=== PATIENT | male | born 1980 | race African-American/Black ===

== ENCOUNTER 2020-08-08 08:38 | Emergency (ER) | payer OTHER, SELFPAY ==
[2020-08-08 09:06] VITALS: PULSE 116; RESP 17; TEMP 37.3; O2SAT 98; BMI 27.4
--- NOTE | 2020-08-08 09:08 | ED.WEAKNESS ---
HPI - Weakness General Chief complaint: Weakness Stated complaint: dehydration,fatigue Time Seen by Provider: 08/08/20 09:04 Source: patient Mode of arrival: ambulatory Limitations: no limitations History of Present Illness HPI Narrative: THIS IS A 39 YEARS OLD MALE PRESENTED AMBULATORY TO THE EMERGENCY DEPARTMENT WITH A CHIEF COMPLAINT OF WEAKNESS, FATIGUE, POOR P.O. INTAKE. HE DENIES ANY FEVER DENIES ANY CHILLS DENIES ANY VOMITING OR DIARRHEA. HE HAS NO PAST MEDICAL HISTORY HE IS A HEAVY DRINKER HOWEVER MD Complaint: generalized weakness Onset (ago): day(s) Duration: constant Location: generalized Severity: mild Relieving factors: none Exacerbating factors: none Associated symptoms: denies other symptoms Related Data Home Medications Medication Instructions Recorded Confirmed No Known Home Meds 08/08/20 08/08/20 Allergies Allergy/AdvReac Type Severity Reaction Status Date / Time No Known Allergies Allergy Unverified 04/21/20 19:34 [No Known Allergies*] Review of Systems Review of Systems: Yes all other systems are reviewed and are negative Cardiovascular: Cardiovascular: Reports no additional cardiovascular complaints Gastrointestinal: Gastrointestinal: Reports no additional gastrointestinal complaints Musculoskeletal: Musculoskeletal: Reports no additional musculoskeletal complaints [facility] Past Medical History Medical History (Updated 08/08/20 @ 11:57 by Man Barlow MD) No known health problems Social History Social History Alcohol intake: current Alcohol intake frequency: a few times a week Smoking Status: Heavy tobacco smoker Substance Use Type: Amphetamines Advance Directives: No Advance Directives Information Provided: No Physical Exam Vital Signs: Vital Signs: Last Vital Signs Temp 99.2 F 08/08/20 09:06 Pulse 75 08/08/20 11:32 Resp 16 08/08/20 11:32 BP 120/79 08/08/20 11:32 Pulse Ox 100 08/08/20 11:32 Body Mass Index 27.4 Const: Other: HE IS AWAKE ALERT ORIENTED X3 LOOKS WELL IS NO TOXIC-APPEARING A HENMT: Other: HEAD EYES NOSE MOUTH THROAT IS UNREMARKABLE Neck: Other: NECK IS SUPPLE NO TENDERNESS NO MENINGEAL SIGN Chest: Chest palpation & inspection: normal inspection of the chest Resp: Other: LUNGS ARE CLEAR DURING AUSCULTATION AND THERE IS NO WHEEZING NO RALES Cardio: Other: REGULAR RATE RHYTHM A GI: Other: ABDOMEN IS SOFT NO TENDERNESS NO GUARDING AND NO REBOUND Skin: Other: SKIN IS NORMAL THERE IS NO RASH Neuro: Other: HE IS AWAKE ALERT ORIENTED X3 NO NEURO DEFICIT Course Reevaluation(s) Reevaluation #1: Reexamination of the patient the patient is feeling much better labs are normal and chest x-ray is negative his COVID test is still pending Time: 11:54 MDM - Weakness Lab Data Result diagrams: 08/08/20 09:40 08/08/20 09:40 Labs: Lab Results 08/08/20 08/08/20 08/08/20 Range/Units 09:40 09:40 09:40 WBC 5.1 (4.8-10.8) X10*3/uL RBC 5.12 (4.60-5.80) X10*6/uL Hgb 15.5 (14.0-18.0) g/dl Hct 47.2 (42-52) % MCV 92.2 (80-98) fL MCH 30.3 (27.0-33.0) pg MCHC 32.8 (31.0-36.0) g/dl RDW 12.0 (11.0-16.0) % Plt Count 249 (160-400) X10*3/uL MPV 10.3 (9.4-12.4) fL Immature Gran % (Auto) 0.4 (0.0-0.4) % Neut % (Auto) 69.0 (45-73) % Lymph % (Auto) 21.7 (20-40) % [place] % (Auto) 8.3 (2-11) % Eos % (Auto) 0.4 (0-4) % Baso % (Auto) 0.2 (0-2) % Lymph # (Auto) 1.1 L (1.2-4.9) X10*3/uL [place] # (Auto) 0.4 (0.1-1.2) X10*3/uL Eos # (Auto) 0.0 (0.0-0.4) X10*3/uL Baso # (Auto) 0.0 (0.0-0.2) X10*3/uL Abs Immat Gran (auto) 0.02 (0.00-0.03) X10*3/uL Absolute Neuts (auto) 3.5 (2.0-8.3) X10*3/uL Absolute Nucleated RBC 0.000 (0.0-0.012) X10*3/uL Nucleated RBC % (auto) 0.0 (0.0-0.2) /100WBC Sodium 141 (135-145) mmol/L Potassium 4.9 (3.3-5.1) mmol/l Chloride 103 (96-108) mmol/L Carbon Dioxide 27 (22-29) mmol/L Anion Gap 16 (12-20) BUN 13 (9-16) mg/dL Creatinine 1.47 H (0.5-1.4) mg/dL Estim Creat Clear Calc 65.3 Estimated GFR 53 Random Glucose 118 H (60-115) mg/dL Calcium 10.7 H (8.4-10.2) mg/dL Magnesium 2.4 (1.6-2.6) mg/dL Total Bilirubin 0.3 (0.0-1.0) mg/dL AST 51 H (5-37) U/L ALT 80 H (0-40) U/L Alkaline Phosphatase 87 (39-117) U/L Total Protein 9.0 H (6.5-8.0) g/dL Albumin 5.3 H (3.5-5.0) g/dL Ethyl Alcohol mg/dL Coronavirus (PCR) (Negative) Influenza Type A (PCR) (Negative) Influenza Type B (PCR) (Negative) RSV RNA Qual (PCR) (Negative) 08/08/20 08/08/20 Range/Units 09:41 09:41 WBC (4.8-10.8) X10*3/uL RBC (4.60-5.80) X10*6/uL Hgb (14.0-18.0) g/dl Hct (42-52) % MCV (80-98) fL MCH (27.0-33.0) pg MCHC (31.0-36.0) g/dl RDW (11.0-16.0) % Plt Count (160-400) X10*3/uL MPV (9.4-12.4) fL Immature Gran % (Auto) (0.0-0.4) % Neut % (Auto) (45-73) % Lymph % (Auto) (20-40) % [place] % (Auto) (2-11) % Eos % (Auto) (0-4) % Baso % (Auto) (0-2) % Lymph # (Auto) (1.2-4.9) X10*3/uL [place] # (Auto) (0.1-1.2) X10*3/uL Eos # (Auto) (0.0-0.4) X10*3/uL Baso # (Auto) (0.0-0.2) X10*3/uL Abs Immat Gran (auto) (0.00-0.03) X10*3/uL Absolute Neuts (auto) (2.0-8.3) X10*3/uL Absolute Nucleated RBC (0.0-0.012) X10*3/uL Nucleated RBC % (auto) (0.0-0.2) /100WBC Sodium (135-145) mmol/L Potassium (3.3-5.1) mmol/l Chloride (96-108) mmol/L Carbon Dioxide (22-29) mmol/L Anion Gap (12-20) BUN (9-16) mg/dL Creatinine (0.5-1.4) mg/dL Estim Creat Clear Calc Estimated GFR Random Glucose (60-115) mg/dL Calcium (8.4-10.2) mg/dL Magnesium (1.6-2.6) mg/dL Total Bilirubin (0.0-1.0) mg/dL AST (5-37) U/L ALT (0-40) U/L Alkaline Phosphatase (39-117) U/L Total Protein (6.5-8.0) g/dL Albumin (3.5-5.0) g/dL Ethyl Alcohol < 10 mg/dL Coronavirus (PCR) NEGATIVE (Negative) Influenza Type A (PCR) NEGATIVE (Negative) Influenza Type B (PCR) NEGATIVE (Negative) RSV RNA Qual (PCR) NEGATIVE (Negative) Imaging Data Chest x-ray: Attestation: I personally reviewed and interpreted this imaging study as follows: Radiologist's impression: Not acute disease Discharge Plan Discharge Clinical Impression: Weakness Patient Disposition: Home, Self-Care Instructions: Weakness (ED) Prescriptions: No Action No Known Home Meds RF: 0 Referrals: Physician,None [Primary Care Provider] - 2 days (Please follow-up with your primary care physician a trickle of the fluid returning to worse) Interventions: ED Discharge Assessment Last Done: 08/08/20 12:47 Discharge Date/Time: 08/08/20 12:47
--- NOTE | 2020-08-08 09:11 | XR_ITS ---
EXAMINATION: XR CHEST CLINICAL INFORMATION: Cough COMPARISON: None TECHNIQUE: Frontal view of the chest was obtained. FINDINGS: No significant abnormality is noted involving the heart, lungs, mediastinum, bony thorax or soft tissues. XR/XR chest 1V IMPRESSION: Unremarkable examination.
[2020-08-08] MEDS: 0.9 % Sodium Chloride 1,000 ML 999 ML IVCONT (09:44)
[2020-08-08 09:51] LABS: MANUAL DIFF FLAG NO
[2020-08-08 09:52] LABS: Basophils Percent Auto 0.2 % (0-2); Eosinophils Percent Auto 0.4 % (0-4); Hematocrit 47.2 % (42-52); Hemoglobin 15.5 g/dl (14.0-18.0); Imm Gran Abs Auto 0.02 X10*3/uL (0.00-0.03); Imm Gran Pct Auto 0.4 % (0.0-0.4); Lymphocytes Absolute Auto 1.1 X10*3/uL (1.2-4.9); Lymphocytes Percent Auto 21.7 % (20-40); Mean Corpuscular HGB Conc 32.8 g/dl (31.0-36.0); Mean Corpuscular Hemoglobin 30.3 pg (27.0-33.0); Mean Corpuscular Volume 92.2 fL (80-98); Mean Platelet Volume 10.3 fL (9.4-12.4); Monocytes Absolute Auto 0.4 X10*3/uL (0.1-1.2); Monocytes Percent Auto 8.3 % (2-11); Neutrophils Absolute Auto 3.5 X10*3/uL (2.0-8.3); Platelet Count 249 X10*3/uL (160-400); Red Blood Count 5.12 X10*6/uL (4.60-5.80); White Blood Count 5.1 X10*3/uL (4.8-10.8)
[2020-08-08 10:22] LABS: Ethanol < 10 mg/dL
[2020-08-08 10:24] LABS: Magnesium 2.4 mg/dL (1.6-2.6)
[2020-08-08 10:28] LABS: Influenza A PCR NEGATIVE (Negative); Influenza B PCR NEGATIVE (Negative); Resp Syncy Virus RNA Qual PCR NEGATIVE (Negative); SARS COV2 PCR INHOUSE NEGATIVE (Negative)
[2020-08-08 10:35] LABS: Alanine Aminotransferase 80 U/L (0-40); Albumin Level 5.3 g/dL (3.5-5.0); Alkaline Phosphatase 87 U/L (39-117); Anion Gap 16 (12-20); Aspartate Amino Transferase 51 U/L (5-37); Bilirubin Total 0.3 mg/dL (0.0-1.0); Blood Urea Nitrogen 13 mg/dL (9-16); Carbon Dioxide 27 mmol/L (22-29); Chloride 103 mmol/L (96-108); Creatinine Clr Calc Pharmacy 65.3; Estimated Glomerular Filt Rate 53; Glucose Random 118 mg/dL (60-115); Potassium 4.9 mmol/l (3.3-5.1); Sodium 141 mmol/L (135-145)
[2020-08-08 10:45] LABS: Calcium 10.7 mg/dL (8.4-10.2)
[2020-08-08 11:32] VITALS: BP 120/79; PULSE 75; RESP 16; O2SAT 100
== END 2020-08-08 12:47 | disposition home or self-care (01) ==
PROVIDERS: Emergency Provider Emergency Medicine
DX: R53.1 Weakness (principal); Z20.828 Contact with and (suspected) exposure to other viral communicable diseases; F17.210 Nicotine dependence, cigarettes, uncomplicated
CPT/HCPCS: 0241U; 36415; 71045; 80053; 80320; 83735; 85025; 96360; 99284

== ENCOUNTER 2020-10-10 14:50 | Outpatient (REF) | payer OTHER, SELFPAY | END 2020-10-10 14:51 | disposition home or self-care (01) | LOC: HO.LAB 14:50 | PROVIDERS: PCP Internal Medicine; Visit Provider Internal Medicine | DX: Z20.822 Contact with and (suspected) exposure to COVID-19 (principal) | CPT/HCPCS: 36415; C9803; U0003; U0005 ==

== ENCOUNTER 2021-01-23 08:55 | Emergency (ER) | payer OTHER, SELFPAY ==
[2021-01-23 09:11] VITALS: BP 151/99; PULSE 86; RESP 16; TEMP 36.8; O2SAT 97; BMI 27.4
--- NOTE | 2021-01-23 09:22 | ED.GENADULT ---
HPI - General Adult General Chief complaint: Nausea/Vomiting/Diarrhea Stated complaint: vomiting Time Seen by Provider: 01/23/21 09:07 Source: patient Mode of arrival: ambulatory Limitations: no limitations History of Present Illness HPI narrative: 40-year-old male previously healthy here with complaints of 2 episodes of vomiting this morning, fatigue and several loose bowel movements. No fevers or chills. No shortness of breath, chest pain, abdominal pain, cough. No sick contact. He has received 1 COVID vaccine and is ago for his 2nd COVID vaccination. Related Data Previous Rx's Medication Instructions Recorded ondansetron 4 mg PO Q6H PRN #10 tab 01/23/21 Allergies Allergy/AdvReac Type Severity Reaction Status Date / Time No Known Allergies Allergy Verified 10/10/20 13:57 [No Known Allergies*] Review of Systems Review of Systems: Yes all other systems are reviewed and are negative Constitutional: Constitutional: Reports no additional constitutional complaints, Denies body ache(s), Denies chills, Reports fatigue, Denies fever(s), Denies headache(s) and Denies weakness Eyes: Eyes: Reports no additional eye complaints and Denies change in vision ENT: Reports system reviewed and no additional complaints, except as documented, Denies dizziness, Denies headache(s), Denies nasal congestion, Denies nasal discharge and Denies neck pain Cardiovascular: Cardiovascular: Reports no additional cardiovascular complaints, Denies chest pain, Denies leg edema and Denies dyspnea Respiratory: Respiratory: Reports no additional respiratory complaints, Denies cough and Denies dyspnea Gastrointestinal: Gastrointestinal: Reports no additional gastrointestinal complaints, Denies abdominal pain, Denies diarrhea, Reports nausea and Reports vomiting Genitourinary: Genitourinary: Denies urinary incontinence Musculoskeletal: Musculoskeletal: Reports no additional musculoskeletal complaints, Denies back pain, Denies arthralgias, Denies joint swelling, Denies neck pain, Denies numbness and Denies tingling Integumentary/Breasts: Skin/Breast: Reports system reviewed and no additional complaints, except as docu and Denies rash Neurologic: Reports system reviewed and no additional complaints, except as documented, Denies Abnormal speech present, Denies dizziness, Denies headache(s), Denies numbness, Denies tingling and Denies weakness Endocrine: Endocrine: Reports fatigue PMFSH Past Medical History Attestation statement: The following information was validated with the patient. Source: old records reviewed and nursing notes reviewed Medical History No known health problems Surgical History No pertinent past surgical history Family History Family History Father No problems noted. Mother No problems noted. Social History Social History (Updated 01/23/21 @ 09:23 by Patsy Marquez NP) Alcohol intake: current Alcohol intake frequency: 3 or more drinks per day Alcohol type: hard liquor Smoked in Last 30 Days: No Use of substances other than those prescribed or required for medical reasons: No Substance Use Type: Amphetamines Advance Directives: Yes Advance Directives Information Provided: No Advance Directives on File: No Physical Exam Vital Signs: Vital Signs: Last Vital Signs Temp 98.2 F 01/23/21 09:27 Pulse 75 01/23/21 11:02 Resp 16 01/23/21 11:02 BP 130/84 01/23/21 11:02 Pulse Ox 99 01/23/21 11:02 Body Mass Index 27.4 Const: General: cooperative, healthy appearing, comfortable and no acute distress Orientation/consciousness: patient oriented x3 Limitations: no limitations HENMT: Head: Yes normal to inspection Ears: hearing grossly normal bilaterally General nose exam: Normal external nose present Face and sinus: Yes normal facial exam Mouth: Normal oral and palatal mucosa present Throat: Yes posterior oropharynx normal Eyes: General: appearance normal, both eyes and all related structures Pupils: Equal, round and reactive pupils present Neck: Neck: Yes normal visual inspection Chest: Chest palpation & inspection: normal inspection of the chest Resp: Effort & Inspection: normal respiratory effort Auscultation: clear to auscultation bilaterally Cardio: Rate: regular rate Rhythm: regular rhythm Peripheral pulses: Peripheral pulses 2+ throughout GI: Inspection: Yes normal to inspection Palpation (GI): Soft to palpation and nontender Auscultation: normal bowel sounds Back/Spine/Pelvis: Thoracic/Lumbar Spine: thoracic and lumbar spine normal to inspection Skin: General skin exam: no rashes or lesions noted Neuro: General: patient oriented x3, no focal motor deficits and normal sensation to monofilament Cranial nerves: Yes Equal, round and reactive pupils present Cognition (Neuro): normal cognition Speech: No Abnormal speech present Gait exam (Neuro): Normal gait present Motor exam (neuro): 5/5 motor strength present throughout Extrem: General: Yes normal to inspection Course Course Course Narrative: 40-year-old male here with complaints of 2 episodes of vomiting NBNB this am w/ fatigue and several loose BMs. No abdominal pain. Hemodynamically stable. Will check labs, COVID screen. We will give sublingual Zofran. H/o almost daily alcohol use (1 pint hard liquor/day) intermittent for years. No SI. Not interested in detox. Will involve recovery team 1120-Labs unremarkable, Tolerating dariela-po with no additional vomiting episodes. Repeat abdominal exam benign. Likely viral. Recovery team met with patient. Reviewed worrisome signs and symptoms and when to return to the emergency department. Comfortable discharge home. Medical Decision Making Lab Data Result diagrams: 01/23/21 09:48 01/23/21 09:48 Labs: Lab Results 01/23/21 01/23/21 01/23/21 Range/Units 09:46 09:48 09:48 WBC 3.0 L (4.8-10.8) X10*3/uL RBC 4.40 L (4.60-5.80) X10*6/uL Hgb 14.0 (14.0-18.0) g/dl Hct 40.2 L (42-52) % MCV 91.4 (80-98) fL MCH 31.8 (27.0-33.0) pg MCHC 34.8 (31.0-36.0) g/dl RDW 13.3 (11.0-16.0) % Plt Count 237 (160-400) X10*3/uL MPV 10.1 (9.4-12.4) fL Immature Gran % (Auto) 0.7 H (0.0-0.4) % Neut % (Auto) 47.3 (45-73) % Lymph % (Auto) 39.3 (20-40) % [place] % (Auto) 10.7 (2-11) % Eos % (Auto) 1.7 (0-4) % Baso % (Auto) 0.3 (0-2) % Lymph # (Auto) 1.2 (1.2-4.9) X10*3/uL [place] # (Auto) 0.3 (0.1-1.2) X10*3/uL Eos # (Auto) 0.1 (0.0-0.4) X10*3/uL Baso # (Auto) 0.0 (0.0-0.2) X10*3/uL Abs Immat Gran (auto) 0.02 (0.00-0.03) X10*3/uL Absolute Neuts (auto) 1.4 L (2.0-8.3) X10*3/uL Absolute Nucleated RBC 0.000 (0.0-0.012) X10*3/uL Nucleated RBC % (auto) 0.0 (0.0-0.2) /100WBC Sodium 142 (135-145) mmol/L Potassium 4.5 (3.3-5.1) mmol/L Chloride 109 H (96-108) mmol/L Carbon Dioxide 23 (22-29) mmol/L Anion Gap 15 (12-20) BUN 25 H D (9-16) mg/dL Creatinine 1.29 (0.5-1.4) mg/dL Estim Creat Clear Calc 73.6 Estimated GFR > 60 Random Glucose 96 (60-115) mg/dL Calcium 9.5 D (8.4-10.2) mg/dL Magnesium 2.1 (1.6-2.6) mg/dL Total Bilirubin 0.4 (0.0-1.0) mg/dL Direct Bilirubin 0.2 (0.0-0.5) mg/dL AST 45 H (5-37) U/L ALT 38 (0-40) U/L Alkaline Phosphatase 73 (39-117) U/L Total Protein 7.6 (6.5-8.0) g/dL Albumin 4.4 (3.5-5.0) g/dL COVID-19 (DANITA) Negative (Negative) COVID-19 Clin Com See Note Discharge Plan Discharge Clinical Impression: Gastroenteritis Patient Disposition: Home, Self-Care Instructions: Gastroenteritis (ED) Additional Instructions: STart with clear liquids then advance diet as tolerated Prescriptions: New ondansetron 4 mg tablet,disintegrating 4 mg PO Q6H PRN (Reason: nausea and vomiting) Qty: 10 RF: 0 Referrals: Kulwant Borrego MD [Primary Care Provider] - 2 days Stand Alone Forms: Work/School Release Interventions: ED Discharge Assessment Last Done: 01/23/21 11:58 Discharge Date/Time: 01/23/21 12:00
[2021-01-23 09:27] VITALS: BP 151/99; PULSE 86; RESP 16; TEMP 36.8; O2SAT 97
[2021-01-23 09:56] LABS: MANUAL DIFF FLAG NO
[2021-01-23 09:58] LABS: Basophils Percent Auto 0.3 % (0-2); Eosinophils Absolute Auto 0.1 X10*3/uL (0.0-0.4); Eosinophils Percent Auto 1.7 % (0-4); Hematocrit 40.2 % (42-52); Imm Gran Abs Auto 0.02 X10*3/uL (0.00-0.03); Imm Gran Pct Auto 0.7 % (0.0-0.4); Lymphocytes Absolute Auto 1.2 X10*3/uL (1.2-4.9); Lymphocytes Percent Auto 39.3 % (20-40); Mean Corpuscular HGB Conc 34.8 g/dl (31.0-36.0); Mean Corpuscular Hemoglobin 31.8 pg (27.0-33.0); Mean Corpuscular Volume 91.4 fL (80-98); Mean Platelet Volume 10.1 fL (9.4-12.4); Monocytes Absolute Auto 0.3 X10*3/uL (0.1-1.2); Monocytes Percent Auto 10.7 % (2-11); Neutrophils Absolute Auto 1.4 X10*3/uL (2.0-8.3); Neutrophils Percent Auto 47.3 % (45-73); Platelet Count 237 X10*3/uL (160-400); Red Cell Distribution Width 13.3 % (11.0-16.0)
[2021-01-23 10:13] LABS: COVID-19 Test Negative (Negative)
[2021-01-23 10:43] LABS: Alanine Aminotransferase 38 U/L (0-40); Albumin Level 4.4 g/dL (3.5-5.0); Alkaline Phosphatase 73 U/L (39-117); Anion Gap 15 (12-20); Aspartate Amino Transferase 45 U/L (5-37); Bilirubin Direct 0.2 mg/dL (0.0-0.5); Bilirubin Total 0.4 mg/dL (0.0-1.0); Blood Urea Nitrogen 25 mg/dL (9-16); Calcium 9.5 mg/dL (8.4-10.2); Carbon Dioxide 23 mmol/L (22-29); Chloride 109 mmol/L (96-108); Creatinine Clr Calc Pharmacy 73.6; Estimated Glomerular Filt Rate > 60; Glucose Random 96 mg/dL (60-115); Magnesium 2.1 mg/dL (1.6-2.6); Potassium 4.5 mmol/L (3.3-5.1); Sodium 142 mmol/L (135-145); Total Protein 7.6 g/dL (6.5-8.0)
[2021-01-23 11:02] VITALS: BP 130/84; PULSE 75; RESP 16; O2SAT 99
--- NOTE | 2021-01-23 12:17 | MHC.RECOVSUP ---
Recovery Support note: Patient is a 40 year old Romanian speaking male who presented to [facility] ED due to vomiting. This screen writer met with patient to discuss substance use and recovery supports. Patient reports daily alcohol use and a desire to stop drinking entirely. Patient reports a period of 2-3 years of sobriety ten years ago. Patient reports all of his family is in [place] and he feels lonely and unsupported at times. Patient is not interested in detox, however he was receptive to outpatient recovery supports. This screen writer discussed IOP, AA, recovery coaching, [facility] [place] and medications for alcohol use disorder. Patient accepted information on these resources. This screen writer introduced patient to Evan Outside Sales Inspector, who discussed additional supports with patient. Patient reports no further questions at this time. Discussed case with patient's ED provider.
== END 2021-01-23 12:00 | disposition home or self-care (01) ==
PROVIDERS: Nurse Practitioner Family; Emergency Provider Emergency Medicine; PCP Internal Medicine
DX: K52.9 Noninfective gastroenteritis and colitis, unspecified (principal); Z20.822 Contact with and (suspected) exposure to COVID-19
CPT/HCPCS: 36415; 80048; 80076; 83735; 85025; 87635; 99283; 99284

== ENCOUNTER 2021-08-01 10:06 | Outpatient (REF) | payer OTHER, SELFPAY ==
[2021-08-01 10:16] LABS: MANUAL DIFF FLAG NO
[2021-08-01 10:38] LABS: Basophils Percent Auto 0.2 % (0-2); Eosinophils Percent Auto 0.7 % (0-4); Hemoglobin 14.8 g/dl (14.0-18.0); Imm Gran Abs Auto 0.02 X10*3/uL (0.00-0.03); Imm Gran Pct Auto 0.5 % (0.0-0.4); Lymphocytes Absolute Auto 1.7 X10*3/uL (1.2-4.9); Lymphocytes Percent Auto 40.6 % (20-40); Mean Corpuscular HGB Conc 33.6 g/dl (31.0-36.0); Mean Corpuscular Hemoglobin 30.5 pg (27.0-33.0); Mean Corpuscular Volume 90.7 fL (80.0-98.0); Mean Platelet Volume 10.7 fL (9.4-12.4); Monocytes Absolute Auto 0.4 X10*3/uL (0.1-1.2); Monocytes Percent Auto 10.3 % (2-11); Neutrophils Percent Auto 47.7 % (45-73); Platelet Count 239 X10*3/uL (160-400); Red Blood Count 4.85 X10*6/uL (4.60-5.80); Red Cell Distribution Width 12.7 % (11.0-16.0); White Blood Count 4.1 X10*3/uL (4.8-10.8)
[2021-08-01 12:44] LABS: Alanine Aminotransferase 47 U/L (0-40); Albumin Level 4.7 g/dL (3.5-5.0); Alkaline Phosphatase 76 U/L (39-117); Anion Gap 15 (12-20); Aspartate Amino Transferase 48 U/L (5-37); Bilirubin Total 0.6 mg/dL (0.0-1.0); Blood Urea Nitrogen 18 mg/dL (9-16); Carbon Dioxide 24 mmol/L (22-29); Chloride 107 mmol/L (96-108); Cholesterol 194 mg/dL; Estimated Glomerular Filt Rate > 60; Glucose Fasting 100 mg/dL (60-99); HDL Cholesterol 49 mg/dL; LDL Cholesterol Calculated 95 mg/dl; Potassium 4.7 mmol/L (3.3-5.1); Sodium 141 mmol/L (135-145); Triglycerides 253 mg/dL
== END 2021-08-01 10:07 | disposition home or self-care (01) ==
LOC: HO.LAB 10:06
PROVIDERS: PCP Internal Medicine; Visit Provider Internal Medicine
DX: Z00.00 Encounter for general adult medical examination without abnormal findings (principal); E11.9 Type 2 diabetes mellitus without complications
CPT/HCPCS: 36415; 80053; 80061; 85025

== ENCOUNTER 2023-02-01 09:10 | Outpatient (REF) | payer OTHER, SELFPAY ==
[2023-02-01 09:22] LABS: MANUAL DIFF FLAG NO
[2023-02-01 10:04] LABS: Basophils Percent Auto 0.6 % (0-2); Eosinophils Absolute Auto 0.1 X10*3/uL (0.0-0.4); Eosinophils Percent Auto 1.7 % (0-4); Hematocrit 39.3 % (42.0-52.0); Hemoglobin 13.4 g/dl (14.0-18.0); Imm Gran Abs Auto 0.03 X10*3/uL (0.00-0.03); Imm Gran Pct Auto 0.8 % (0.0-0.4); Lymphocytes Percent Auto 28.2 % (20-40); Mean Corpuscular HGB Conc 34.1 g/dl (31.0-36.0); Mean Corpuscular Hemoglobin 32.4 pg (27.0-33.0); Mean Corpuscular Volume 94.9 fL (80.0-98.0); Mean Platelet Volume 10.4 fL (9.4-12.4); Monocytes Absolute Auto 0.5 X10*3/uL (0.1-1.2); Monocytes Percent Auto 14.2 % (2-11); Neutrophils Percent Auto 54.5 % (45-73); Platelet Count 230 X10*3/uL (160-400); Red Blood Count 4.14 X10*6/uL (4.60-5.80); Red Cell Distribution Width 13.1 % (11.0-16.0); White Blood Count 3.6 X10*3/uL (4.8-10.8)
[2023-02-01 10:56] LABS: Alanine Aminotransferase 102 U/L (0-40); Albumin Level 4.3 g/dL (3.5-5.0); Alkaline Phosphatase 110 U/L (39-117); Anion Gap 16 (12-20); Aspartate Amino Transferase 213 U/L (5-37); Bilirubin Total 0.8 mg/dL (0.0-1.0); Blood Urea Nitrogen 16 mg/dL (9-16); Calcium 9.7 mg/dL (8.4-10.2); Carbon Dioxide 22 mmol/L (22-29); Chloride 107 mmol/L (96-108); Cholesterol 195 mg/dL; Estimated Glomerular Filt Rate > 60; Glucose Fasting 95 mg/dL (60-99); HDL Cholesterol 60 mg/dL; LDL Cholesterol Calculated 110 mg/dl; Sodium 141 mmol/L (135-145); Total Protein 7.8 g/dL (6.5-8.0); Triglycerides 126 mg/dL
[2023-02-01 11:10] LABS: HIV AB/AG Nonreactive (Nonreactive); HIV Num 1 0.07 S/CO (0.00-0.99); Syphilis Screen Nonreactive (Nonreactive); ~HepC Num1 0.07 S/CO (0.00-0.79); ~Hepatitis C Antibody Nonreactive (Nonreactive)
[2023-02-19 12:03] LABS: Herpes Simplex Type 2 IgG <0.90 index
== END 2023-02-01 09:11 | disposition home or self-care (01) ==
LOC: HO.LAB 09:10
PROVIDERS: PCP Internal Medicine; Visit Provider Internal Medicine
DX: Z11.4 Encounter for screening for human immunodeficiency virus [HIV] (principal); N28.9 Disorder of kidney and ureter, unspecified; E78.5 Hyperlipidemia, unspecified; D64.9 Anemia, unspecified; Z20.2 Contact with and (suspected) exposure to infections with a predominantly sexual mode of transmission
CPT/HCPCS: 36415; 80053; 80061; 85025; 86695; 86696; 86780; 86803; 87389

== ENCOUNTER 2023-02-28 14:05 | Outpatient (AMB) | payer OTHER, SELFPAY ==
[2023-02-28 14:08] VITALS: BP 122/90; PULSE 98; O2SAT 99; BMI 26.1
--- NOTE | 2023-02-28 14:08 | MHC.PC.OV ---
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: No Allergies No Known Allergies [No Known Allergies*] Allergy (Verified 02/28/23 14:09) Medication List - Last Reconciled 02/28/23 by Kulwant Borrego MD No Known Home Meds Tobacco use date assessed: 02/28/23 Dental Screening Dental Screen Date: 02/28/23 Did you have a dental visit in the last 12 months?: Yes Did you have a dental problem in the last 6 months where you did not have access to dental care?: No Was dental information given to patient?: Patient has dentist HPI Lab Work Discuss HPI Details excess alcohol; LFTs and CBC abnormal [facility] Medical History No known health problems Surgical History No pertinent past surgical history Family History Father No problems noted. Mother No problems noted. Social History (Updated 01/23/21 @ 09:23 by Patsy Nye NP) Housing: House Alcohol intake: current Alcohol intake frequency: 3 or more drinks per day Alcohol type: hard liquor Patient Tobacco Use Status: Never used Tobacco Tobacco use type: Cigarette e-Cigarette/Vaping Use: Never Used Second Hand Smoke Exposure: No Substance Use Type: Amphetamines service: No Current occupational status: employed Cognitive needs: No Hearing needs: No Vision needs: No Questionnaire Thrive Questionnaire Date Thrive assessed: 12/10/22 AUDIT C Alcohol Use Questionnaire (AUDIT-C) 1. How often do you have a drink containing alcohol?: 4 or more times a week 2. How many drinks containing alcohol do you have on a typical day when you are drinking?: 3 or 4 (Whiskey) Total Score: 5 MIKALA-7 AMB Questionnaire MIKALA-7 Date MIKALA - 7 assessed: 12/10/22 Source: Developed by Drs. Guanaco Boone, Valerie Moralez, Roshan Tran and colleagues, with an educational noemí from [employer]. Review of Systems Const Denies chills, Denies headache(s) and Denies weight loss ENT Denies headache(s) Card Denies chest pain, Denies syncope, Denies irregular heart rhythm and Denies dyspnea Resp Denies chest congestion, Denies cough and Denies dyspnea GI Denies abdominal pain, Denies change in stool character, Denies nausea and Denies vomiting Musc Denies deformity and Denies joint swelling Neuro Denies syncope and Denies headache(s) Physical exam (Primary Care) Vital Signs: Last Vital Signs Pulse 98 02/28/23 14:08 BP 122/90 H 02/28/23 14:08 Pulse Ox 99 02/28/23 14:08 Oxygen Delivery Method Room Air 02/28/23 14:08 BMI result Body Mass Index 26.1 Tobacco/Smoking Status: Tobacco use Status Tobacco use date assessed 02/28/23 02/28/23 14:10 Patient Tobacco Use Status Never used Tobacco 02/28/23 14:10 Tobacco use type Cigarette 02/28/23 14:10 e-Cigarette/Vaping Use Never Used 02/28/23 14:10 Thrive Assessment: Date of Thrive Assessment Date Thrive assessed 12/10/22 02/28/23 14:10 Const General: cooperative, comfortable and no acute distress Resp Effort & Inspection: normal respiratory effort Auscultation: clear to auscultation bilaterally Percussion: percussion normal Cardio Jugular venous distension: no JVD Rate: regular rate Rhythm: regular rhythm GI Inspection: Yes normal to inspection Assessment and Plan Assessment & Plan (1) Alcohol abuse: Code(s): F10.10 - Alcohol abuse, uncomplicated Plan: recheck labs; refer Orders: Orders [facility] Kidney/Liver Profile Today F10.20 - Alcohol dependence, uncomplicated Coding Level of Care Code Est Pt Level 3 (11680) Diagnoses Alcohol abuse F10.10
== END 2023-02-28 15:40 | disposition home or self-care (01) ==
PROVIDERS: PCP Internal Medicine; Visit Provider Internal Medicine
DX: F10.10 Alcohol abuse, uncomplicated (principal)
CPT/HCPCS: 99213

== ENCOUNTER 2023-02-28 14:25 | Outpatient (REF) | payer OTHER, SELFPAY ==
[2023-02-28 16:29] LABS: Alanine Aminotransferase 97 U/L (0-40); Aspartate Amino Transferase 187 U/L (5-37); Blood Urea Nitrogen 17 mg/dL (9-16); Estimated Glomerular Filt Rate > 60
== END 2023-02-28 14:26 | disposition home or self-care (01) ==
LOC: HO.LAB 14:25
PROVIDERS: PCP Internal Medicine; Visit Provider Internal Medicine
DX: F10.20 Alcohol dependence, uncomplicated (principal)
CPT/HCPCS: 36415; 82565; 84450; 84460; 84520

== ENCOUNTER 2023-04-05 08:41 | Outpatient (AMB) | payer OTHER, SELFPAY ==
[2023-04-05 08:42] VITALS: BP 120/82; PULSE 107; O2SAT 99; BMI 26.1
--- NOTE | 2023-04-05 08:42 | A.OFFPC_ITS ---
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 per policy Accompanied by: Self / Same As Patient Allergies No Known Allergies [No Known Allergies*] Allergy (Verified 04/05/23 08:43) Tobacco use date assessed: 02/28/23 Dental Screening Dental Screen Date: 04/05/23 Did you have a dental visit in the last 12 months?: Yes Did you have a dental problem in the last 6 months where you did not have access to dental care?: No Was dental information given to patient?: Patient has dentist HPI lab results HPI Details discussed his alcoholism and [id number] lfts; sindy to alc rx program [facility] Medical History No known health problems Surgical History No pertinent past surgical history Family History (Updated 04/05/23 @ 08:44 by CHAIM Su) Father No problems noted. Mother No problems noted. Social History Housing: House Alcohol intake: current Alcohol intake frequency: 3 or more drinks per day Alcohol type: hard liquor Patient Tobacco Use Status: Never used Tobacco Tobacco use type: Cigarette e-Cigarette/Vaping Use: Never Used Second Hand Smoke Exposure: No Substance Use Type: Amphetamines service: No Current occupational status: employed Cognitive needs: No Hearing needs: No Vision needs: No Questionnaire PHQ-9 Over the last 2 weeks, how often have you been bothered by any of the following problems? 1. Little interest or pleasure in doing things: not at all 2. Feeling down, depressed, or hopeless: not at all 3. Trouble falling or staying asleep, or sleeping too much: not at all 4. Feeling tired or having little energy: not at all 5. Poor appetite or overeating: not at all 6. Feeling bad about yourself - or that you are a failure or have let yourself or your family down: not at all 7. Trouble concentrating on things, such as reading the newspaper or watching television: not at all 8. Moving or speaking so slowly that other people could have noticed. Or the opposite - being so fidgety or restless that you have been moving around a lot more than usual: not at all 9. Thoughts that you would be better off or of hurting yourself in some way: not at all Total score: 0 Depression Screening Interpretation: Negative 25277 - PHQ-9 Billing: Yes Source: Developed by Drs. Guanaco Boone, Roshan Mazariegos and colleagues, with an educational noemí from [employer]. Thrive Questionnaire Date Thrive assessed: 12/10/22 AUDIT C Alcohol Use Questionnaire (AUDIT-C) 1. How often do you have a drink containing alcohol?: 4 or more times a week 2. How many drinks containing alcohol do you have on a typical day when you are drinking?: 3 or 4 (Whiskey) Total Score: 5 MIKALA-7 AMB Questionnaire MIKALA-7 Date MIKALA - 7 assessed: 12/10/22 Source: Developed by Drs. Guanaco Boone, Valerie Moralez, Roshan Tran and colleagues, with an educational noemí from [employer]. Review of Systems Const Denies chills, Denies headache(s) and Denies weight loss ENT Denies headache(s) Card Denies chest pain, Denies syncope, Denies irregular heart rhythm and Denies dyspnea Resp Denies chest congestion, Denies cough and Denies dyspnea GI Denies abdominal pain, Denies change in stool character, Denies nausea and Denies vomiting Musc Denies deformity and Denies joint swelling Neuro Denies syncope and Denies headache(s) Physical exam (Primary Care) Vital Signs: Last Vital Signs Pulse 107 H 04/05/23 08:42 BP 120/82 04/05/23 08:42 Pulse Ox 99 04/05/23 08:42 Oxygen Delivery Method Room Air 04/05/23 08:42 BMI result Body Mass Index 26.1 Tobacco/Smoking Status: Tobacco use Status Tobacco use date assessed 02/28/23 04/05/23 08:48 Patient Tobacco Use Status Never used Tobacco 04/05/23 08:48 Tobacco use type Cigarette 04/05/23 08:48 e-Cigarette/Vaping Use Never Used 04/05/23 08:48 PHQ-9: PHQ-9 Score PHQ-9: Total score 0 04/05/23 09:11 Depression Screening Interpretation: Negative Thrive Assessment: Date of Thrive Assessment Date Thrive assessed 12/10/22 04/05/23 08:48 Const General: cooperative, comfortable and no acute distress Resp Effort & Inspection: normal respiratory effort Auscultation: clear to auscultation bilaterally Percussion: percussion normal Cardio Jugular venous distension: no JVD Rate: regular rate Rhythm: regular rhythm GI Inspection: Yes normal to inspection Assessment and Plan Assessment & Plan (1) Alcohol abuse: Code(s): F10.10 - Alcohol abuse, uncomplicated Plan: to alc rx program Coding Level of Care Code Est Pt Level 3 (92497) Diagnoses Alcohol abuse F10.10
== END 2023-04-05 09:48 | disposition home or self-care (01) ==
PROVIDERS: PCP Internal Medicine; Visit Provider Internal Medicine
DX: F10.10 Alcohol abuse, uncomplicated (principal)
CPT/HCPCS: 99213

== ENCOUNTER 2024-12-10 10:54 | Outpatient (AMB) | payer BC, SELFPAY ==
[2024-12-10 11:07] VITALS: BP 124/82; PULSE 89; RESP 20; TEMP 37; O2SAT 97; BMI 25.9
--- NOTE | 2024-12-10 11:07 | MHC.PC.OV ---
Vital Signs 12/10/24 11:07 Height 5 ft 6 in Weight 160 lb 9.6 oz BMI 25.9 BP 124/82 Blood Pressure Location Lt brachial Position Sitting Respiration 20 Pulse 89 Pulse Source Pulse Oximeter Temp 98.6 F Temp Source Oral Pulse Oximetry (%) 97 Oxygen Delivery Method Room Air Intake Visit Reasons: IRINEO from Dr. Borrego/VIKKI Tape Librarian Required: No Accompanied by: Self / Same As Patient Allergies No Known Allergies [No Known Allergies*] Allergy (Verified 12/10/24 11:42) Medication List - Last Reconciled 12/10/24 by RAVEN Ashley No Known Home Meds Tobacco use date assessed: 12/10/24 Dental Screening Dental Screen Date: 12/10/24 Did you have a dental visit in the last 12 months?: Yes Did you have a dental problem in the last 6 months where you did not have access to dental care?: No Was dental information given to patient?: Patient has dentist HPI IRINEO from Dr. Borrego/VIKKI HPI Details Patient is presenting for annual physical and transitioning of care from Dr. Borrego who retired Dentist: up to date Eye: need eye Snellen: Right: Left: Corrected vision: no STI screening: Yes Colonoscopy: will cologuard Pap Smer:n/a Flu:decline COVID:x2 Tdap: Given in office today Diet: Regular Exercise: Non Patient is requesting medication to assist him with his alcohol addiction Patient reports that he is drinking the strong stuff and it is hard to stop Denies chest pain, shortness of breath, heart palpitation, dizziness No abdominal pain/change in bowel habits No urinary symptoms PFSH Medical History No known health problems Surgical History No pertinent past surgical history Family History Father No problems noted. Mother No problems noted. Social History Housing: House Alcohol intake: current Alcohol intake frequency: 3 or more drinks per day Alcohol type: hard liquor Patient Tobacco Use Status: Never used Tobacco Tobacco use type: Cigarette e-Cigarette/Vaping Use: Never Used Second Hand Smoke Exposure: No Substance Use Type: Amphetamines service: No Current occupational status: employed Current occupation: Teacher Cognitive needs: No Hearing needs: No Vision needs: No Questionnaire PHQ-9 Over the last 2 weeks, how often have you been bothered by any of the following problems? 1. Little interest or pleasure in doing things: not at all 2. Feeling down, depressed, or hopeless: not at all 3. Trouble falling or staying asleep, or sleeping too much: more than half the days 4. Feeling tired or having little energy: more than half the days 5. Poor appetite or overeating: not at all 6. Feeling bad about yourself - or that you are a failure or have let yourself or your family down: not at all 7. Trouble concentrating on things, such as reading the newspaper or watching television: not at all 8. Moving or speaking so slowly that other people could have noticed. Or the opposite - being so fidgety or restless that you have been moving around a lot more than usual: not at all 9. Thoughts that you would be better off or of hurting yourself in some way: not at all Total score: 4 Depression Screening Interpretation: Negative Depression Screening Done: Yes 25635 - PHQ-9 Billing: Yes Source: Developed by Drs. Guanaco Boone, Valerie Moralez, Roshan Tran and colleagues, with an educational noemí from [employer]. Thrive Questionnaire Date Thrive assessed: 12/10/24 I am a: Patient What is your living situation today?: I have a steady place to live Within the past 12 months, did the food you bought not last and you didn't have the money to get more?: I choose not to answer this question Within the past 12 months, did you worry whether your food would run out before you got money to buy more?: I choose not to answer this question Do you have trouble paying for medicines?: I choose not to answer this question Do you have trouble getting transportation to medical appointments?: No Do you have trouble paying your heating and electricity bill?: I choose not to answer this question Do you have trouble taking care of your child, family member or friend?: No Do you have trouble with day-to-day activities such as bathing, preparing meals, shopping, managing finances, etc.?: No Are you currently unemployed and looking for a job?: No Are you interested in more education?: No Please select the resources that you would like help with: None Currently or been in a relationship where the following occur: I choose not to answer THRIVE Score: 0 AUDIT C Alcohol Use Questionnaire (AUDIT-C) 1. How often do you have a drink containing alcohol?: 4 or more times a week 2. How many drinks containing alcohol do you have on a typical day when you are drinking?: 1 or 2 3. How often do you have six or more drinks on one occasion?: Weekly Total Score: 7 Score Reviewed/Action Taken: Yes MIKALA-7 AMB Questionnaire MIKALA-7 Date MIKALA - 7 assessed: 12/10/24 Feeling nervous, anxious, or on edge: 0 = Not at all Not being able to stop or control worryin = Not at all Worrying too much about different things: 0 = Not at all Trouble relaxin = Not at all Being so restless that it is hard to sit still: 0 = Not at all Becoming easily annoyed or irritable: 0 = Not at all Feeling afraid as if something awful might happen: 0 = Not at all Total MIKALA-7 score (0-4 normal; 5-9 mild; 10-14 moderate; 15-21 severe): 0 Source: Developed by Drs. Guanaco Boone, Valerie Moralez, Roshan Tran and colleagues, with an educational noemí from [employer]. MIKALA-7 Assessment Billing MIKALA-7 Assessment Tool: MIKALA-7 Assessment 38349 Review of Systems Const Denies headache(s) Eyes Denies loss of vision and Reports other (Intermittent watery left eye) ENT Denies vertigo, Denies dizziness, Denies headache(s) and Denies sore throat Card Denies chest pain, Denies leg edema and Denies lightheadedness Resp Denies cough, Denies hemoptysis and Denies wheezing GI Denies abdominal pain, Denies melena, Denies constipation, Reports heartburn (With alcohol and spicy foods), Denies diarrhea and Denies vomiting Denies dysuria, Denies urinary frequency and Denies urinary urgency Musc Denies arthralgias, Denies joint swelling, Denies numbness and Denies tingling Neuro Denies Abnormal speech present, Denies behavioral changes, Denies vertigo, Denies dizziness, Denies headache(s), Denies loss of vision, Denies memory loss, Denies numbness and Denies tingling Psych Denies anxiety, Denies behavioral changes, Denies depression, Denies memory loss and Denies panic attacks Cy/Lymph Denies easy bleeding and Denies easy bruising Aller/Immun Denies wheezing Physical exam (Primary Care) Vital Signs: Last Vital Signs Temp 98.6 F 12/10/24 11:07 Pulse 89 12/10/24 11:07 Resp 20 12/10/24 11:07 BP 124/82 12/10/24 11:07 Pulse Ox 97 12/10/24 11:07 Oxygen Delivery Method Room Air 12/10/24 11:07 BMI result Body Mass Index 25.9 Tobacco/Smoking Status: Tobacco use Status Tobacco use date assessed 12/10/24 12/10/24 11:14 Patient Tobacco Use Status Never used Tobacco 12/10/24 11:14 Tobacco use type Cigarette 12/10/24 11:14 e-Cigarette/Vaping Use Never Used 12/10/24 11:14 PHQ-9: PHQ-9 Score PHQ-9: Total score 4 12/10/24 12:06 Depression Screening Interpretation: Negative Thrive Assessment: Date of Thrive Assessment Date Thrive assessed 12/10/24 12/10/24 11:14 Currently or been in a relationship where the following occur: I choose not to answer Const General: healthy appearing, no acute distress, alert and awake Nutritional Appearance: well nourished Orientation/consciousness: oriented to person, oriented to place and oriented to time [facility] Ears: TM's normal bilaterally General nose exam: Normal nasal mucous membranes and turbinates present Eyes Conjunctivae: conjunctivae normal Sclerae: sclerae normal Pupils: Equal, round and reactive pupils present Neck Neck: Yes no lymphadenopathy and Yes no JVD Thyroid: Thyroid normal Carotids: no bruits Resp Effort & Inspection: normal respiratory effort and not tachypneic Auscultation: no crackles, no rales, no rhonchi and no wheezes Cardio Rate: regular rate Rhythm: regular rhythm Heart sounds: no murmurs and normal S1 and S2 GI Palpation (GI): Soft to palpation, nontender, no hepatomegaly and no splenomegaly Auscultation: normal bowel sounds Skin General skin exam: no rashes or lesions noted and dry skin Neuro General: oriented to person, oriented to place and oriented to time Cranial nerves: Yes Equal, round and reactive pupils present Speech: No Abnormal speech present Gait exam (Neuro): Normal gait present Motor exam (neuro): no tremor noted Extrem Right upper extremity: full ROM Left upper extremity: full ROM Right lower extremity: full ROM; no edema Left lower extremity: full ROM; no edema Psych Mental Status: mental status grossly normal Speech and movement: Normal speech and movement present Affect: normal affect Attitude: cooperative Thought process: Normal thought process present Immunizations Boostrix Tdap 2.5 Lf unit-8 mcg-5 Lf/0.5 mL intramuscular syringe Performing Provider: RAVEN Ashley [facility] Administered by: Krista Ortiz CMA on 12/10/24 12:06 Dose Route Admin Location Dispensed Lot Number Expiration Date [facility] Clinical Training Specialist 0.5 mL IM Right Deltoid 0.5 mL [id number] 03/30/27 17941-498-41 Solaborate VIS Given Date VIS Provided VIS Publication Date 12/10/24 Single Vaccine 24 Eligibility Eligibility Date Funding Source Not [facility] Eligible 12/10/24 Private Coding Level of Care Code Est Pt Prev Care 40-64y(43610) Diagnoses Physical exam Z00.00 Alcohol abuse F10.10 Screening for STD (sexually transmitted disease) Z11.3 Heartburn R12 Additional Codes MIKALA-7 Assessment Billing - MIKALA-7 Assessment Tool: MIKALA-7 Assessment 30957 ([id number]) PHQ-9 - 51070 - PHQ-9 Billing: Yes ([id number]) Time Spent (min) 35 Assessment & Plan Assessment & Plan (1) Physical exam: Code(s): Z00.00 - Encounter for general adult medical examination without abnormal findings Category: Medical (2) Alcohol abuse: Code(s): F10.10 - Alcohol abuse, uncomplicated Category: Social Hx (3) Screening for STD (sexually transmitted disease): Code(s): Z11.3 - Encounter for screening for infections with a predominantly sexual mode of transmission Category: Medical (4) Heartburn: Code(s): R12 - Heartburn Category: Medical Plan Preventative guidelines reviewed with the patient. No recent labs completed. Labs were ordered for the patient to complete as soon as possible to further evaluate the patient health. Management of excessive alcohol use involves a referral to addiction medicine, with monitoring and labs for potential medication use. For GERD, dietary changes are recommended to minimize irritants like alcohol and spicy foods. A Cologuard test is planned for colorectal cancer screening. The patient was given a Tdap vaccination to update incomplete records and advised to complete fasting lab work and regular eye examinations and monitor for triggers to allergy reaction affecting eyes. STD testing to improve health maintenance. Patient was informed and verbally consented to the use of an ambient scribe for clinic note documentation during this visit. Orders: Orders Comprehensive Randolph. Panel Fast Today F10.10 - Alcohol abuse, uncomplicated, Z00.00 - Encounter for general adult medical examination without abnormal findings TSH reflex Free T4 Today F10.10 - Alcohol abuse, uncomplicated, Z00.00 - Encounter for general adult medical examination without abnormal findings Glucose Fasting Today F10.10 - Alcohol abuse, uncomplicated, Z00.00 - Encounter for general adult medical examination without abnormal findings Syphilis Screen Today Z11.3 - Encounter for screening for infections with a predominantly sexual mode of transmission Chlamydia Culture Today Z11.3 - Encounter for screening for infections with a predominantly sexual mode of transmission Complete Blood Count Auto Diff Today F10.10 - Alcohol abuse, uncomplicated, Z00.00 - Encounter for general adult medical examination without abnormal findings Lipid Panel Today F10.10 - Alcohol abuse, uncomplicated, Z00.00 - Encounter for general adult medical examination without abnormal findings UA CC w/rflx Micro + Cult Today F10.10 - Alcohol abuse, uncomplicated, Z00.00 - Encounter for general adult medical examination without abnormal findings Vitamin D 25-OH Total Today F10.10 - Alcohol abuse, uncomplicated, Z00.00 - Encounter for general adult medical examination without abnormal findings TDaP Immunization Today Z23 - Encounter for immunization HIV Ab/Ag Today Z11.3 - Encounter for screening for infections with a predominantly sexual mode of transmission CT NG by PCR Today Z11.3 - Encounter for screening for infections with a predominantly sexual mode of transmission Referrals Cologuard Test Z12.11 - Encounter for screening for malignant neoplasm of colon, Z12.12 - Encounter for screening for malignant neoplasm of rectum Addiction Medicine Referral F10.10 - Alcohol abuse, uncomplicated
--- OUTSIDE RECORDS SUMMARY | 2024-12-10 12:27 | XMS_ITS | Data Portability ---
Author Organization [place] [facility], [facility] [place] Address [address] [place] [address] Assessment Encounter Date Assessment Date Assessment LastModified by Organization Details LastModified Time 07/10/2016 07/10/2016 This 35 yo male with no history of injury but for one month has had pain in inferior scapular [email or web address] Not available 07/10/2016 17:06:02 Plan of Treatment Reminders Order Date Submit Date Provider Last Modified By Organization Details Last Modified Time Details Appointments None recorded. Lab None recorded. Referral physical therapist referral 2015 016 ylafrance Not available 7 17:23:46 Procedures None recorded. Surgeries None recorded. Imaging XR, shoulder, 2 or more view 2015 016 [email or web address] [facility] (Imaging), [address], [place], [address], 7 12:16:25 Medication Orders ibuprofen 600 mg tablet 2015 016 DBA_PATCH_ [id number] [id number], [address] [place], [address], 6 04:20:47 Patient TargetsNo targets recorded. Patient InstructionsNo instructions recorded. Reason for Referral Referring Physician: Ana hays, Internal Medicine, Encounter Date: 07/10/2016 Results Created Date Observation Date Name Description Value Unit Range Abnormal Flag Note LastModifiedBy Organization Detail LastModifiedTime 08/17/19 17 07/10/2006 imagi ng/di agnos tic resul t No observ ation record ed. [facility] (Imaging) [address], [place], [address], 08/22/2016 23:28:35 Result Notes None recorded. 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 Procedures Surgical History None recorded. Imaging Results Imaging Date Name Status LastModified by Organiz ation Details LastModified Time 07/10/2006 imaging/diag nostic result completed [facility] (Imaging) [address], [place], [address], 08/22/2016 23:28:35 Procedure Notes None recorded. Medical Equipment None Reported. Allergies Allergen ID Allergen Name Allergen Category Reaction Reaction Severity Criticality Documentation Date Start Date Code Code System Note Provider Name and Address Organization Details Recorded Time 480212 Substance with sulfonami de structure and antibacte rial mechanism of action (substanc e) medicatio n rash Not available Not available 07/08/20162012 49397 8003 SNOMED React ion: rash; Not Available [facility] 16:43:21 Medications Name Sig Start Date Stop Date Status Note LastModified by Organization Details LastModified Time isoniazid 300 mg tablet 1 tablet; 300 MG; Once a day; 30 day(s) 012 06/26 completed Actio n: [place] g;Isi rce: Blessing Bender ;Prep ared By: Marianela rodrigez Ma rta 06/03 12:06 :11 PM Not Available Not Available Not Available ibuprofen 600 mg tablet Take 1 tablet 3 times a day by oral route. 016 active Not Available Not Available Not Avai lable Vitals Date Recorded Body height Body weight Body mass index (BMI) Heart rate Body temperature Respiratory rate Oxygen saturation Oxygen saturation in Arterial blood by Pulse oximetry Systolic blood pressure Diastolic blood pressure Provider Name and Address Organization Details Last Updated DateTime 6 167.64 cm 57644.7 8 g 25.8 kg/m2 83 /min 97.7 [degF] 16 /min 98 % 98 % 126 mm[Hg] 82 mm[Hg] Naomi Godinez [place] [facility] 6 10:38:26 Date Recorded Body height Body weight Body mass index (BMI) Body temperature Oxygen saturation Oxygen saturation in Arterial blood by Pulse oximetry Heart rate Systolic blood pressure Diastolic blood pressure Provider Name and Address Organization Details Last Updated DateTime 6 167.64 cm 52312.9 6 g 26.1 kg/m2 97.7 [degF] 99 % 99 % 83 /min 122 mm[Hg] 68 mm[Hg] Aliza Alaniz [place] [facility] 6 16:29:54 Social History None recorded. Functional Status None recorded. Mental Status None recorded. Family History Nothing Reported Notes:06/18/2013: FamilyHist oryDetails: 3 brother(s) , 3 sister(s) - healthy. 2 son(s) - healthy Father: NOTES: all parents and sibling are healthly and in [place]. Pt. has been in the [place] for one month;STATUS: alive;AGE: 64 Mother: STATUS: alive;AGE: 63 Medical History No medical history recorded. Immunizations Vaccine Type Date Status Note Provider Nam e and Address Organization Details Recorded Time Td (adult), 2 Lf tetanus toxoid, preservative free, adsorbed 2 completed Not Available [facility] 09/05/2019 02:13:26 Hep B, unspecified formulation 2 completed Not Available [facility] 09/05/2019 02:13:26 TST-PPD intradermal 2 completed Not Available [facility] 09/05/2019 02:13:26 Hep B, unspecified formulation 2 completed Not Available [facility] 09/05/2019 02:13:26 Hep B, unspecified formulation 2 completed Not Available [facility] 09/05/2019 02:13:26 Influenza, split virus, trivalent, preservative 3 completed Not Available [facility] 07/08/2016 19:11:42 Tdap 3 completed Not Available [facility] 07/08/2016 19:11:43 Past Encounters Encounter ID Performer Location Encounter Start Date Encounter Closed Date Diagnosis/Indication Diagnosis SNOMED-CT Code Diagnosis ICD10 Code Diagnosis Note [id number] Ana Briggs DO [address] [address] 06/26/2016 09:39:20 06/26/2016 11:41:40 Acute thoracic back pain 037164461 M54.6 [id number] Ana Briggs DO [address] [address] 07/10/2016 15:55:41 07/11/2016 11:04:32 Pain radiating to right shoulder 306052764 M25.511 continue ibuprofen , add tylenol , did not add ice 20 min as it seems to be worse in colder weather Health Concerns Section Related Observation LastModified by Organization Detai ls LastModified Time None Recorded Concern Status LastModified by Organization Details LastModified Time None Recorded Advance Directives Directive None Recorded Payers Insurance Date Sequence Insurance Name Policy Number Policy Oliveira Covered Member ID Oliveira Member ID Guarantor Name 07/06/2016 1 [employer] ([employer]) Alli Christian [id number] Alli Christian Notes Date Note Type Note Provider Name and Address Organization Details Recorded Time 06/26/2016 text/html This 35 yo male with right shoulder pain for one month, plays BB and used to play soccer until 19 yrs of age, then started BB Ana Briggs DO [address] [place], [address], [facility] 06/26/2016 17:08:53 07/10/2016 text/html This shoulder right pain about one month, ibuprofen almost every day: pain relief 50% and lasted the 8 hours, but still there afterwards Ana Briggs DO [address] [place] [address], [address], [facility] 07/10/2016 18:05:28
== END 2024-12-10 12:08 | disposition home or self-care (01) ==
LOC: HO.HMCH 10:55
DX: Z00.00 Encounter for general adult medical examination without abnormal findings (principal); F10.10 Alcohol abuse, uncomplicated; Z11.3 Encounter for screening for infections with a predominantly sexual mode of transmission; R12 Heartburn; Z23 Encounter for immunization

== ENCOUNTER → 2024-12-10 10:54 | Outpatient (BNVA) | payer BC, SELFPAY | DX: Z00.00 Encounter for general adult medical examination without abnormal findings (principal); Z23 Encounter for immunization; F10.10 Alcohol abuse, uncomplicated; R12 Heartburn | CPT/HCPCS: 90471; 90715; 96127 ==

== ENCOUNTER 2024-12-18 09:42 | Outpatient (REF) | payer BC, SELFPAY ==
[2024-12-18 09:59] LABS: MANUAL DIFF FLAG NO
[2024-12-18 10:50] LABS: Basophils Percent Auto 0.6 % (0-2); Eosinophils Absolute Auto 0.1 X10*3/uL (0.0-0.4); Eosinophils Percent Auto 1.6 % (0-4); Hematocrit 39.1 % (42.0-52.0); Hemoglobin 13.1 g/dl (14.0-18.0); Imm Gran Abs Auto 0.02 X10*3/uL (0.00-0.03); Imm Gran Pct Auto 0.6 % (0.0-0.4); Lymphocytes Absolute Auto 1.1 X10*3/uL (1.2-4.9); Lymphocytes Percent Auto 32.8 % (20-40); Mean Corpuscular HGB Conc 33.5 g/dl (31.0-36.0); Mean Corpuscular Hemoglobin 31.9 pg (27.0-33.0); Mean Corpuscular Volume 95.1 fL (80.0-98.0); Mean Platelet Volume 10.4 fL (9.4-12.4); Monocytes Absolute Auto 0.5 X10*3/uL (0.1-1.2); Neutrophils Absolute Auto 1.6 x10*3/uL (2.0-8.3); Neutrophils Percent Auto 49.4 % (45-73); Platelet Count 242 X10*3/uL (160-400); Red Blood Count 4.11 X10*6/uL (4.60-5.80); Red Cell Distribution Width 12.5 % (11.0-16.0); White Blood Count 3.2 X10*3/uL (4.8-10.8)
[2024-12-18 10:55] LABS: Appearance Urine Clear; Color Urine Yellow; Glucose Urine UA Negative (Negative); Leukocyte Esterase Urine Trace (Negative); Nitrite Urine Negative (Negative); PH 5.5 (5.0-9.0); UMIC TRIGGER UACC YES; Urine Blood Negative (Negative); Urine Ketones 15 mg/dL (Negative); Urine Protein 30 (1+) mg/dL (Neg-Trace)
[2024-12-18 10:58] LABS: Bacteria Urine None Seen (None Seen); Hyaline Casts Urine 0-2 /LPF (0-2); RBC Urine 0-2 /HPF (0-2); Squamous Epithelial Cell Urine 0-2 /HPF (0-2); WBC Urine 0-5 /HPF (0-5)
[2024-12-18 11:33] LABS: Alanine Aminotransferase 91 U/L (0-40); Albumin Level 4.3 g/dL (3.5-5.0); Alkaline Phosphatase 92 U/L (39-117); Anion Gap 16 (12-20); Aspartate Amino Transferase 208 U/L (5-37); Bilirubin Total 0.5 mg/dL (0.0-1.0); Blood Urea Nitrogen 13 mg/dL (9-16); Calcium 9.3 mg/dL (8.4-10.2); Carbon Dioxide 25 mmol/L (22-29); Chloride 107 mmol/L (96-108); Cholesterol 172 mg/dL (<200); Estimated Glomerular Filt Rate > 60; Glucose Fasting 87 mg/dL (60-99); HDL Cholesterol 54 mg/dL (>40); LDL Cholesterol Calculated 103 mg/dL (<100); Potassium 4.6 mmol/L (3.3-5.1); Sodium 143 mmol/L (135-145); TSH reflex Free T4 1.39 uIU/mL (0.32-4.0); Total Protein 7.8 g/dL (6.5-8.0); Triglycerides 77 mg/dL (<150); Vitamin D 25-OH Total 22.6 ng/mL (>30)
[2024-12-18 11:38] LABS: Syphilis Screen Nonreactive (Nonreactive)
[2024-12-18 11:39] LABS: HIV AB/AG Nonreactive (Nonreactive); HIV Num 1 0.06 S/CO (0.00-0.99)
[2024-12-18 12:18] LABS: CT PCR NOT DETECTED (Not Detect.); NG PCR NOT DETECTED (Not Detect.)
== END 2024-12-18 09:43 | disposition home or self-care (01) ==
LOC: HO.LAB 09:42
DX: Z00.00 Encounter for general adult medical examination without abnormal findings (principal); F10.10 Alcohol abuse, uncomplicated; Z11.3 Encounter for screening for infections with a predominantly sexual mode of transmission
CPT/HCPCS: 80053; 80061; 81001; 82306; 84443; 85025; 86780; 87389; 87491; 87591

== ENCOUNTER 2024-12-18 10:12 | Outpatient (AMB) | payer BC, SELFPAY ==
--- NOTE | 2024-12-18 10:19 | MHC.OFFVIS ---
Vital Signs 12/18/24 10:20 Height 5 ft 6 in Weight 171 lb BMI 27.6 Pulse 87 Pulse Source Pulse Oximeter Pulse Oximetry (%) 99 Intake Visit Reasons: F10.10 - Alcohol abuse Allergies No Known Allergies [No Known Allergies*] Allergy (Verified 12/18/24 10:20) HPI HPI F10.10 - Alcohol abuse: Details: He presents for evaluation and treatment of alcohol use disorder. HPI Comments Details: He presents for alcohol use disorder. He is currently using 1/2-1 pint a day,mostly in evening of whiskey,any brand. He feels shaky and unwell if tries to stop. He has done this since 2016, age 35,not as youth. 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 He lives with female partner. His PCP is Andrés Aranda. He has seen him within last year. Substance Use History no benzo,heroin,fentanyl,oxy,cocaine or tobacco,alcohol alone, withdrawal shakiness,no seizures or admissions age first use 35 Social History no domestic violence 2 children with ex,one graduating high school,live in [facility] female partner current transportation car resides with partner No IVDU Recovery history none no detox no DUI no peer support or AA Behavioral Health depression and anxiety no hospitalization or providers no SI or HI Medical Conditions none no tb Legal denes incarceration,DCF or probation [facility] Medical History (Updated 12/18/24 @ 11:03 by Micaela Bates MD) Alcohol use disorder, moderate, dependence No known health problems Surgical History No pertinent past surgical history Family History Father No problems noted. Mother No problems noted. Social History Housing: House Alcohol intake: current Alcohol intake frequency: 3 or more drinks per day Alcohol type: hard liquor Patient Tobacco Use Status: Never used Tobacco Tobacco use type: Cigarette e-Cigarette/Vaping Use: Never Used Second Hand Smoke Exposure: No Substance Use Type: Amphetamines service: No Current occupational status: employed Current occupation: Teacher Cognitive needs: No Hearing needs: No Vision needs: No Review of Systems Const All systems reviewed & are unremarkable except as noted in HPI and below Physical Exam Vital Signs: Last Vital Signs Pulse 87 12/18/24 10:20 Pulse Ox 99 12/18/24 10:20 BMI result Body Mass Index 27.6 Const General: cooperative Orientation/consciousness: patient oriented x3 HEENT Head: Yes normal to inspection Mouth: Normal oral and palatal mucosa present Eyes General: appearance normal, both eyes and all related structures Pupils: Equal, round and reactive pupils present Resp Effort & Inspection: normal respiratory effort Cardio Rate: regular rate Rhythm: regular rhythm GI Palpation (GI): Soft to palpation and nontender General: Yes no CVA tenderness Back/Spine/Pelvis Back: no CVA tenderness Skin General skin exam: no rashes or lesions noted Neuro General: patient oriented x3 Cranial nerves: Yes CN's II-XII intact bilaterally and Yes Equal, round and reactive pupils present Extrem General: Yes normal to inspection Psych Appearance: grossly normal Assessment & Plan Assessment & Plan (1) Alcohol use disorder, moderate, dependence: Comment: He has moderate to severe alcohol use disorder with no prior treatment or counseling services Code(s): F10.20 - Alcohol dependence, uncomplicated Category: Medical Plan: Naltrexone 50 mg po daily, and hope to get alcohol use down within the next month and IM Vivitrol if works. MVI daily Folic acid and thiamine daily Clonidine and Vistaril prn anxiety/sleep. Counseling AA Pneumonia and meningitis shots. Cirrhosis evaluation,PCP check and check fibrosis score,u/s abdomen with elastography. See in two weeks here. Orders: Orders Liver Fibrosis Pnl Today F10.20 - Alcohol dependence, uncomplicated US abdomen comp w elastography Today F10.20 - Alcohol dependence, uncomplicated Prothrombin Time INR Today F10.20 - Alcohol dependence, uncomplicated Referrals Counseling Referral F10.20 - Alcohol dependence, uncomplicated Medications: New naltrexone 50 mg PO DAILY 30 days 30 tabs 1RF thiamine HCl (vitamin B1) 100 mg PO DAILY 30 days 30 caps 11RF clonidine HCl 0.1 mg PO TID 14 days PRN 42 tabs 0RF withdrawal symptoms folic acid 1 mg PO DAILY 30 days 30 tabs 11RF hydroxyzine HCl 25 mg PO BEDTIME 14 days 14 tabs 1RF Coding Level of Care Code New Pt Level 4 (11487) Diagnoses Alcohol use disorder, moderate, dependence F10.20
[2024-12-18 10:20] VITALS: PULSE 87; O2SAT 99; BMI 27.6
--- OUTSIDE RECORDS SUMMARY | 2024-12-18 10:33 | XMS_ITS | Data Portability ---
Author Organization [place] - [facility], _[facility] [place] Address [address] [place] [address] Assessment Encounter Date Assessment Date Assessment LastModified [...] 2 or more view 2015 016 ylafrance [facility] (Imaging), [address] [facility], [place], [address], 7 12:16:25 Medication Orders ibuprofen 600 mg tablet 2015 016 [id number] [id number], [address] [place], [address], 6 04:20:47 Patient TargetsNo targets recorded. Patient InstructionsNo instructions recorded. Reason for Referral Referring Physician: Ana hays, Internal Medicine, Encounter Date: 07/10/2016 Results Created Date Observation Date Name Description Value Unit Range Abnormal Flag Note LastModifiedBy Organization Detail LastModifiedTime 08/17/19 17 07/10/2006 imagi ng/di agnos tic resul t No observ ation record ed. [facility] (Imaging) [address], [place], [address], 08/22/2016 23:28:35 Result Notes None recorded. 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 Procedures Surgical History None recorded. Imaging Results Imaging Date Name Status LastModified by Organiz ation Details LastModified Time 07/10/2006 imaging/diag nostic result completed [facility] (Imaging) [address], [place], [address], 08/22/2016 23:28:35 Procedure Notes None recorded. Medical Equipment None Reported. Allergies Allergen ID Allergen Name Allergen Category Reaction Reaction Severity Criticality Documentation Date Start Date Code Code System Note Provider Name and Address Organization Details Recorded Time 743838 Substance with sulfonami de structure and antibacte rial mechanism of action (substanc e) medicatio n rash Not available Not available 07/08/20162012 47588 8003 SNOMED React ion: rash; Not Available [facility] 16:43:21 Medications Name Sig Start [...] Details Last Updated DateTime 6 167.64 cm 11951.7 8 g 25.8 kg/m2 83 /min 97.7 [degF] 16 /min 98 % 98 % 126 mm[Hg] 82 mm[Hg] Naomi Godinez [place] - [facility] 6 10:38:26 Date Recorded Body height Body weight Body mass index (BMI) Body temperature Oxygen saturation Oxygen saturation in Arterial blood by Pulse oximetry Heart rate Systolic blood pressure Diastolic blood pressure Provider Name and Address Organization Details Last Updated DateTime 6 167.64 cm 15762.9 6 g 26.1 kg/m2 97.7 [degF] 99 % 99 % 83 /min 122 mm[Hg] 68 mm[Hg] Aliza Alaniz [place] - [facility] 6 16:29:54 Social [...] preservative free, adsorbed 2 completed Not Available [facility] 09/05/2019 02:13:26 Hep B, unspecified formulation 2 completed Not Available [facility] 09/05/2019 02:13:26 TST-PPD intradermal 2 completed Not Available [facility] 09/05/2019 02:13:26 Hep B, unspecified formulation 2 completed Not Available [facility] 09/05/2019 02:13:26 Hep B, unspecified formulation 2 completed Not Available [facility] 09/05/2019 02:13:26 Influenza, split virus, trivalent, preservative 3 completed Not Available [facility] 07/08/2016 19:11:42 Tdap 3 completed Not Available [facility] 07/08/2016 19:11:43 Past Encounters Encounter ID Performer Location Encounter Start Date Encounter Closed Date Diagnosis/Indication Diagnosis SNOMED-CT Code Diagnosis ICD10 Code Diagnosis Note [id number] Ana Briggs DO [address] [address] 06/26/2016 09:39:20 06/26/2016 11:41:40 Acute thoracic back pain [id number] M54.6 [id number] Ana Briggs DO [address] [address] 07/10/2016 15:55:41 07/11/2016 11:04:32 Pain radiating to right shoulder 547363845 M25.511 continue ibuprofen , add tylenol , [...] ID Guarantor Name 07/06/2016 [employer] ([employer]) Alli Christian [id number] Alli Christian Notes Date Note Type Note Provider Name and Address Organization Details Recorded Time 06/26/2016 text/html This 35 yo male with right shoulder pain for one month, plays BB and used to play soccer until 19 yrs of age, then started BB Ana Briggs DO [address] [place], [address], [facility] - [facility] 06/26/2016 17:08:53 07/10/2016 text/html This shoulder right pain about one month, ibuprofen almost every day: pain relief 50% and lasted the 8 hours, but still there afterwards Ana Briggs DO [address] [place] [address], [id number], [facility] - [facility] 07/10/2016 18:05:28
== END 2024-12-18 11:06 | disposition home or self-care (01) ==
LOC: HO.HCC 10:13
PROVIDERS: Visit Provider Internal Medicine
DX: F10.20 Alcohol dependence, uncomplicated (principal)
CPT/HCPCS: 99204

== ENCOUNTER 2024-12-22 18:40 | Emergency (ER) | payer BC, SELFPAY ==
[2024-12-22 19:02] VITALS: BP 142/100; PULSE 86; RESP 18; TEMP 36.6; O2SAT 98; BMI 27.8
--- NOTE | 2024-12-22 19:03 | ED_ITS ---
HPI - General Adult General Chief complaint: Nausea/Vomiting/Diarrhea Stated complaint: Vomitting, abd pain, No eating Time Seen by Provider: 12/22/24 21:31 History of Present Illness ED Provider: Rehan WINCHESTER narrative: The patient is a 44-year-old male with a history of alcoholism. He recently has tried to stop his drinking. Four days ago on December 18 he went to the [facility] for help with his alcohol use. He drinks between half a point and 1 point whiskey in the evenings. If he tries to stop he feels shaky. He was prescribed oral naltrexone at the [facility]. He started this medication yesterday morning. Since then he has felt significantly unwell with nausea and vomiting. He had nausea and vomiting yesterday and today. He feels quite shaky. He tried to drink alcohol today but he says he vomited it. He came to the emergency room because he was feeling so bad. The patient says he has never really gone through alcohol detox in the past because he has always resumed alcohol. The patient works as a secondary teacher. He lives with his female partner. He is originally from [facility]. Related Data Home Medications ?Medication ?Instructions ?Recorded ?Confirmed amoxicillin 125 mg/5 mL oral 250 mg PO TID 12/18/24 suspension Previous Rx's ?Medication ?Instructions ?Recorded clonidine HCl 0.1 mg tablet 0.1 mg PO TID PRN withdrawal 12/18/24 symptoms 14 days #42 tabs folic acid 1 mg tablet 1 mg PO DAILY 30 days #30 tabs 12/18/24 hydroxyzine HCl 25 mg tablet 25 mg PO BEDTIME 14 days #14 tabs 12/18/24 naltrexone 50 mg tablet 50 mg PO DAILY 30 days #30 tabs 12/18/24 thiamine HCl (vitamin B1) 100 mg 100 mg PO DAILY 30 days #30 caps 12/18/24 capsule carbamazepine 200 mg tablet See Rx Instructions .Route 12/23/24 .COMPLEX #10 tabs Allergies Allergy/AdvReac Type Severity Reaction Status Date / Time No Known Allergies Allergy Verified 12/22/24 19:07 [No Known Allergies*] Review of Systems 2 Review of Systems: Yes all other systems are reviewed and are negative [facility] Past Medical History Medical History (Updated 12/23/24 @ 00:48 by Tristen Van MD) Alcohol use disorder, moderate, dependence No known health problems Surgical History No pertinent past surgical history Family History Family History Father No problems noted. Mother No problems noted. Social History Social History Housing: House Alcohol intake: current Alcohol intake frequency: 3 or more drinks per day Alcohol type: hard liquor Patient Tobacco Use Status: Never used Tobacco Tobacco use type: Cigarette Smoked in Last 30 Days: No e-Cigarette/Vaping Use: Never Used Second Hand Smoke Exposure: No Use of substances other than those prescribed or required for medical reasons: No Substance Use Type: Amphetamines Advance Directives: No Advance Directives Information Provided: No Do you have a plan to hurt others: No Plan service: No Current occupational status: employed Current occupation: Teacher Cognitive needs: No Hearing needs: No Vision needs: No Physical Exam ED Vital Signs: Vital Signs - 24 hr 12/22/24 19:02 12/23/24 00:03 12/23/24 01:07 Temperature 97.8 F 98.0 F 98.0 F Pulse Rate 86 84 84 Respiratory Rate 18 18 18 Blood Pressure 142/100 H 122/85 122/85 Pulse Oximetry 98 98 98 Oxygen Delivery Method Room Air Room Air Room Air BMI result Body Mass Index 27.8 Const Other: The patient is a pleasant 44-year-old who was awake and alert. He is somewhat tremulous. HENMT Other: Face is symmetrical. Mucous membranes moist. Eyes General: appearance normal, both eyes and all related structures Sclerae: sclerae normal Pupils: Equal, round and reactive pupils present EOM: EOMs intact bilaterally Neck Neck: Yes full ROM and Yes no JVD Resp Effort & Inspection: normal respiratory effort Auscultation: clear to auscultation bilaterally Cardio Rate: regular rate Rhythm: regular rhythm Heart sounds: S1 normal heart sound present and S2 normal heart sound present GI Other: The abdomen is soft and nontender. Specifically there was no upper abdominal tenderness. No Berry's sign. Skin Other: Skin is dry and unremarkable Neuro Other: The patient is awake and alert. His mental status seems clear. Cranial nerves 2 through 12 are intact. He is quite tremulous but otherwise neurologically intact. He has normal strength sensation in his extremities. Cranial nerves: Yes Equal, round and reactive pupils present Extrem Other: No peripheral edema Course Course Course Narrative: This is a Rapid Medical Examination (RME) performed by Lamar Dougherty PA-C in triage. Full HPI, ROS, assessment and treatment plan per primary provider in the Main ED. Hx: 44 yo M hx etoh use disorder here w/ N/V/D and epigastric abd pain. feels tremulous. recently started on naltrexone - denies consuming etoh with this. no hx abd surgeries. no hx withdrawal seizures. Plan: labs, UA, UDS Medications Administered Discontinued Medications Generic Name Dose Route Start Last Admin Trade Name Freq PRN Reason Stop Dose Admin Carbamazepine 200 mg 12/22/24 23:12 12/22/24 23:59 Carbamazepine 200 Mg Tablet PO 12/22/24 23:13 200 mg ONCE ONE Administration Diazepam 10 mg 12/22/24 21:38 12/22/24 21:50 Diazepam 10 Mg/2 Ml Cartridge IVPUSH 12/22/24 21:39 10 mg STAT STA Administration Dextrose/Sodium Chloride 1,000 mls @ 250 mls/hr 12/22/24 21:45 12/22/24 21:50 D5ns IVCONT 250 mls/hr .Q4H DANA Administration Medical Decision Making Medical Decision Making [facility] Narrative: The patient is a 44-year-old male who sought treatment for alcoholism at the [facility] last week on Saturday. He was prescribed naltrexone. He took his 1st dose of naltrexone on Saturday morning, the day prior to presentation. He presents now with nausea and vomiting. He tried to drink some alcohol today to see if it would help his symptoms but the alcohol did not stay down. The patient's abdomen seems benign. He was quite tremulous. I thought his symptoms were largely related to alcohol withdrawal. He was given 10 mg of IV diazepam. He was also given a L of D5 normal saline. He was observed. He had resolution of his symptoms. He was offered the opportunity to stay in the emergency room to speak to the recovery team but he preferred to be discharged because he wants to go to work. I wrote a prescription for a small tapering course of carbamazepine that he can try for alcohol withdrawal symptoms as an outpatient. He was advised to contact the [facility] for additional advice as well. He should return if worse. Lab Data 12/22/24 19:15 12/22/24 19:15 Labs: Lab Results 12/22/24 12/22/24 Range/Units 19:15 19:22 WBC 4.6 L (4.8-10.8) X10*3/uL RBC 4.52 L (4.60-5.80) X10*6/uL Hgb 14.8 (14.0-18.0) g/dl Hct 41.6 L (42.0-52.0) % MCV 92.0 (80.0-98.0) fL MCH 32.7 (27.0-33.0) pg MCHC 35.6 (31.0-36.0) g/dl RDW 12.1 (11.0-16.0) % Plt Count 269 (160-400) X10*3/uL MPV 9.8 (9.4-12.4) fL Immature Gran % (Auto) 0.6 H (0.0-0.4) % Neut % (Auto) 62.6 (45-73) % Lymph % (Auto) 23.9 (20-40) % [place] % (Auto) 12.3 H (2-11) % Eos % (Auto) 0.4 (0-4) % Baso % (Auto) 0.2 (0-2) % Lymph # (Auto) 1.1 L (1.2-4.9) X10*3/uL [place] # (Auto) 0.6 (0.1-1.2) X10*3/uL Eos # (Auto) 0.0 (0.0-0.4) X10*3/uL Baso # (Auto) 0.0 (0.0-0.2) X10*3/uL Abs Immat Gran (auto) 0.03 (0.00-0.03) X10*3/uL Absolute Neuts (auto) 2.9 (2.0-8.3) x10*3/uL Absolute Nucleated RBC 0.000 (0.0-0.012) X10*3/uL Nucleated RBC % (auto) 0.0 (0.0-0.2) /100WBC Sodium 141 (135-145) mmol/L Potassium 4.2 (3.3-5.1) mmol/L Chloride 98 (96-108) mmol/L Carbon Dioxide 26 (22-29) mmol/L Anion Gap 21 H (12-20) BUN 12 (9-16) mg/dL Creatinine 0.98 (0.5-1.4) mg/dL Estim Creat Clear Calc 93.5 Estimated GFR > 60 Random Glucose 88 (60-115) mg/dL Calcium 10.0 D (8.4-10.2) mg/dL Magnesium 1.6 (1.6-2.6) mg/dL Total Bilirubin 0.8 (0.0-1.0) mg/dL AST 228 H (5-37) U/L ALT 105 H (0-40) U/L Alkaline Phosphatase 99 (39-117) U/L Total Protein 8.8 H (6.5-8.0) g/dL Albumin 4.9 (3.5-5.0) g/dL Lipase 16 (8-78) U/L Urine Color Dark Yellow Urine Appearance Clear Urine pH 5.5 (5.0-9.0) Ur Specific [place] 1.025 (1.005-1.025) Urine Protein 100 (2+) H (Neg-Trace) mg/dL Urine Glucose (UA) Negative (Negative) mg/dL Urine Ketones 80 (Negative) mg/dL Urine Blood Negative (Negative) Urine Nitrite Negative (Negative) Ur Leukocyte Esterase Trace H (Negative) Urine RBC 0-2 (0-2) /HPF Urine WBC 11-20 H (0-5) /HPF Ur Squamous Epith Cells 3-5 (0-2) /HPF Urine Bacteria None Seen (None Seen) Hyaline Casts 0-2 (0-2) /LPF Urine Opiates Screen Not Detected (Not Detect) Ur Buprenorphine Scrn Not Detected (Not Detect) ng/mL Ur Oxycodone Screen Not Detected (Not Detect) ng/mL Urine Methadone Screen Not Detected (Not Detect) ng/mL Urine Fentanyl Screen Not Detected (Not Detect) Ur Barbiturates Screen Not Detected (Not Detect) Ur Phencyclidine Scrn Not Detected (Not Detect) Ur Amphetamines Screen Not Detected (Not Detect) U Benzodiazepines Scrn Not Detected (Not Detect) Urine Cocaine Screen Not Detected (Not Detect) U Marijuana (THC) Screen Not Detected (Not Detect) Ethyl Alcohol 13 mg/dL Influenza Type A (PCR) NEGATIVE (Negative) Influenza Type B (PCR) NEGATIVE (Negative) RSV RNA Qual (PCR) NEGATIVE (Negative) SARS-CoV-2 RNA (RT-PCR) NEGATIVE (Negative) Discharge Plan Discharge Clinical Impression: Nausea and vomiting, Alcohol withdrawal Patient Disposition: Home, Self-Care Instructions: Alcohol Withdrawal (ED) Additional Instructions: I believe that most of the symptoms you were experiencing today were from alcohol withdrawal. I have sent a prescription for a medication called carbamazepine which you may use over the next 4 days to help with any ongoing alcohol withdrawal symptoms. This prescription has been written as a taper. Please plan on taking 4 tablets throughout the day on Saturday, 3 tablets throughout the day on , on Saturday take a tablet in the morning and another 1 in the evening, and then take final tablet on Saturday morning. Please also contact the [facility] office tomorrow to set up a follow up appointment and for additional advice. Please ask them whether they feel you should continue the naltrexone. If you choose to resume alcohol use I would recommend not taking either of these medications until you speak further with the [facility]. If you feel significantly worse please return to the emergency room. Also plan on following up with your primary care doctor. Prescriptions: New carbamazepine 200 mg tablet See Rx Instructions .ROUTE .COMPLEX Qty: 10 0RF Rx Instructions: 200 mg orally, take 1 tablet by mouth 4 times a day x1 day, then 1 tablet by mouth 3 times a day x1 day, then 1 tablet 2 times a day x1 day, and then 1 tablet alone on the last day No Action amoxicillin 125 mg/5 mL suspension for reconstitution 250 mg PO TID naltrexone 50 mg tablet 50 mg PO DAILY 30 Days Qty: 30 1RF folic acid 1 mg tablet 1 mg PO DAILY 30 Days Qty: 30 11RF thiamine HCl (vitamin B1) 100 mg capsule 100 mg PO DAILY 30 Days Qty: 30 11RF clonidine HCl 0.1 mg tablet 0.1 mg PO TID PRN (Reason: withdrawal symptoms) 14 Days Qty: 42 0RF hydroxyzine HCl 25 mg tablet 25 mg PO BEDTIME 14 Days Qty: 14 1RF Referrals: [facility] [Provider Group] (alcohol withdrawal) Andrés Aranda FNP-C [Nurse Practitioner] - Interventions: ED Discharge Assessment Last Done: 12/23/24 01:07 Discharge Date/Time: 12/23/24 01:08 Print Language: [place] African
[2024-12-22 19:20] LABS: MANUAL DIFF FLAG NO
[2024-12-22 19:21] LABS: Basophils Percent Auto 0.2 % (0-2); Eosinophils Percent Auto 0.4 % (0-4); Hematocrit 41.6 % (42.0-52.0); Hemoglobin 14.8 g/dl (14.0-18.0); Imm Gran Abs Auto 0.03 X10*3/uL (0.00-0.03); Imm Gran Pct Auto 0.6 % (0.0-0.4); Lymphocytes Absolute Auto 1.1 X10*3/uL (1.2-4.9); Lymphocytes Percent Auto 23.9 % (20-40); Mean Corpuscular HGB Conc 35.6 g/dl (31.0-36.0); Mean Corpuscular Hemoglobin 32.7 pg (27.0-33.0); Mean Platelet Volume 9.8 fL (9.4-12.4); Monocytes Absolute Auto 0.6 X10*3/uL (0.1-1.2); Monocytes Percent Auto 12.3 % (2-11); Neutrophils Absolute Auto 2.9 x10*3/uL (2.0-8.3); Neutrophils Percent Auto 62.6 % (45-73); Platelet Count 269 X10*3/uL (160-400); Red Blood Count 4.52 X10*6/uL (4.60-5.80); Red Cell Distribution Width 12.1 % (11.0-16.0); White Blood Count 4.6 X10*3/uL (4.8-10.8)
[2024-12-22 19:33] LABS: Ethanol 13 mg/dL
[2024-12-22 19:36] LABS: Alanine Aminotransferase 105 U/L (0-40); Albumin Level 4.9 g/dL (3.5-5.0); Alkaline Phosphatase 99 U/L (39-117); Anion Gap 21 (12-20); Aspartate Amino Transferase 228 U/L (5-37); Bilirubin Total 0.8 mg/dL (0.0-1.0); Blood Urea Nitrogen 12 mg/dL (9-16); Carbon Dioxide 26 mmol/L (22-29); Chloride 98 mmol/L (96-108); Creatinine Clr Calc Pharmacy 93.5; Estimated Glomerular Filt Rate > 60; Glucose Random 88 mg/dL (60-115); Lipase 16 U/L (8-78); Magnesium 1.6 mg/dL (1.6-2.6); Potassium 4.2 mmol/L (3.3-5.1); Sodium 141 mmol/L (135-145); Total Protein 8.8 g/dL (6.5-8.0)
[2024-12-22 19:59] LABS: Influenza A PCR NEGATIVE (Negative); Influenza B PCR NEGATIVE (Negative); Resp Syncy Virus RNA Qual PCR NEGATIVE (Negative); SARS COV2 PCR INHOUSE NEGATIVE (Negative)
[2024-12-22 20:01] LABS: Appearance Urine Clear; Color Urine Dark Yellow; Glucose Urine UA Negative (Negative); Leukocyte Esterase Urine Trace (Negative); Nitrite Urine Negative (Negative); PH 5.5 (5.0-9.0); Specific Gravity - Urine 1.025 (1.005-1.025); UMIC TRIGGER UACC YES; Urine Blood Negative (Negative); Urine Ketones 80 mg/dL (Negative); Urine Protein 100 (2+) mg/dL (Neg-Trace)
[2024-12-22 20:06] LABS: Bacteria Urine None Seen (None Seen); Hyaline Casts Urine 0-2 /LPF (0-2); RBC Urine 0-2 /HPF (0-2); UACC Culture Trigger YES
[2024-12-22 20:12] LABS: Amphetamine Screen Urine Not Detected (Not Detect); Barbiturates, Urine Not Detected (Not Detect); Benzodiazepines Screen Urine Not Detected (Not Detect); Buprenorphine Scr Not Detected (Not Detect); Cannabinoid Screen Urine Not Detected (Not Detect); Cocaine Screen Urine Not Detected (Not Detect); Fentanyl, urine Not Detected (Not Detect); Methadone Screen, Urine Not Detected (Not Detect); Opiate Screen Urine Not Detected (Not Detect); Oxycodone Screen Urine Not Detected (Not Detect); Phencyclidine Screen Urine Not Detected (Not Detect)
[2024-12-22] MEDS: diazePAM 10 MG/2 ML CARTRIDGE IVPUSH (21:50)
[2024-12-22] MEDS: Dextrose 5 % and 0.9 % NaCl 1,000 ML 250 ML IVCONT (21:50)
[2024-12-22] MEDS: carBAMazepine 200 MG TABLET PO (23:59)
--- NOTE | 2024-12-23 | PC.NURSE ---
Took over care from ERI Khanna at 23:00, medicated per mar, Fluid running, no sign of distress, call whaley at the bedside.
[2024-12-23 00:03] VITALS: BP 122/85; PULSE 84; RESP 18; TEMP 36.7; O2SAT 98
--- NOTE | 2024-12-23 01:05 | PC.NURSE ---
Provider into discuss plan of care, Reviewed discharge instructions with pt. pt verbalized understanding, no sign of distress, per provider no need for pt to complete fluids.
[2024-12-23 01:07] VITALS: BP 122/85; PULSE 84; RESP 18; TEMP 36.7; O2SAT 98
== END 2024-12-23 01:08 | disposition home or self-care (01) ==
PROVIDERS: Physician Assistant Medical; Emergency Provider Emergency Medicine; PCP Nurse Practitioner Family
DX: F10.239 Alcohol dependence with withdrawal, unspecified (principal); Y90.0 Blood alcohol level of less than 20 mg/100 ml; R11.2 Nausea with vomiting, unspecified; Z79.899 Other long term (current) drug therapy; Z51.81 Encounter for therapeutic drug level monitoring; Z03.818 Encounter for observation for suspected exposure to other biological agents ruled out
CPT/HCPCS: 0241U; 36415; 80053; 80307; 81001; 81003; 83690; 83735; 85025; 87086; 96374; 99285; J3360

== ENCOUNTER 2025-01-01 14:28 | Outpatient (AMB) | payer BC, SELFPAY ==
--- NOTE | 2025-01-01 14:30 | MHC.AM.SUB ---
Vital Signs 01/01/25 14:38 BP 150/94 H Blood Pressure Location Lt brachial Position Sitting Pulse 87 Pulse Source Pulse Oximeter Pulse Oximetry (%) 98 Oxygen Delivery Method Room Air Intake Visit Reasons: MAT Intake Note: Patient presents for MAT Allergies No Known Allergies [No Known Allergies*] Allergy (Verified 01/01/25 14:39) HPI HPI MAT: Details: He feels Naltrexone makes him feel ill. He has no other complaints. Review of Systems Const All systems reviewed & are unremarkable except as noted in HPI and below Physical Exam Vital Signs: Last Vital Signs Pulse 87 01/01/25 14:38 BP 150/94 H 01/01/25 14:38 Pulse Ox 98 01/01/25 14:38 Oxygen Delivery Method Room Air 01/01/25 14:38 COUNTS INCLUDE 234 BEDS AT THE [facility] Medical History Alcohol use disorder, moderate, dependence No known health problems Surgical History No pertinent past surgical history Family History Father No problems noted. Mother No problems noted. Social History Housing: House Alcohol intake: current Alcohol intake frequency: 3 or more drinks per day Alcohol type: hard liquor Patient Tobacco Use Status: Never used Tobacco Tobacco use type: Cigarette e-Cigarette/Vaping Use: Never Used Second Hand Smoke Exposure: No Substance Use Type: Amphetamines service: No Current occupational status: employed Current occupation: Teacher Cognitive needs: No Hearing needs: No Vision needs: No Assessment & Plan Assessment & Plan (1) Alcohol use disorder, moderate, dependence: Comment: He has moderate to severe alcohol use disorder with no prior treatment or counseling services Code(s): F10.20 - Alcohol dependence, uncomplicated Category: Medical Plan: He has not had good luck with Naltrexone as made him feel dizzy. 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 Counseling,AA
[2025-01-01 14:38] VITALS: BP 150/94; PULSE 87; O2SAT 98
== END 2025-01-01 15:27 | disposition home or self-care (01) ==
LOC: HO.HCC 14:29
PROVIDERS: Visit Provider Internal Medicine
DX: F10.20 Alcohol dependence, uncomplicated (principal)
CPT/HCPCS: 99213